=== PATIENT | female | born 1985 | race Caucasian/White ===

== ENCOUNTER 2016-09-09 17:15 | Emergency (ER) | payer MEDICAID, OTHER ==
[~2016-09-09] VITALS: Ht 157.5 cm; Wt 71.0 kg
[2016-09-09 17:19] VITALS: Ht 157.5 cm; Wt 71.0 kg
[2016-09-09] MEDS ORDERED: OLANZAPINE (ODT) 5 MG TAB ODT ONE (18:00)
[2016-09-09] MEDS ORDERED: ONDANSETRON (ODT) 4 MG TAB ODT STA (18:11)
[2016-09-09 18:16] LABS: BASOPHIL # 0.1 10^3/ul (0.0-0.1); BASOPHILS % 0.5 % (0.0-2.0); EOSINOPHILS # 0.2 10^3/ul (0.0-0.5); EOSINOPHILS % 1.4 % (0.0-7.0); HEMATOCRIT 38.5 % (37.0-47.0); HEMOGLOBIN 12.8 g/dl (12.0-16.0); LYMPHOCYTES # 4.1 10^3/ul (0.8-2.9); LYMPHOCYTES % 31.3 % (15.0-51.0); MEAN CORPUSCULAR HEMOGLOBIN 32.2 pg (29.0-33.0); MEAN CORPUSCULAR HGB CONC 33.2 g/dl (32.0-37.0); MEAN CORPUSCULAR VOLUME 96.7 fl (82.0-101.0); MEAN PLATELET VOLUME 10.7 fl (7.4-10.4); MONOCYTE # 0.8 10^3/ul (0.3-0.9); MONOCYTES % 5.8 % (0.0-11.0); NEUTROPHIL # 7.9 10^3/ul (1.6-7.5); NEUTROPHILS % 60.5 % (39.0-77.0); PLATELET COUNT 299 10^3/UL (140-415); RED BLOOD COUNT 3.98 10^6/ul (4.20-5.40); RED CELL DISTRIBUTION WIDTH 12.2 % (11.5-14.5); WHITE BLOOD COUNT 13.1 10^3/ul (4.8-10.8)
[2016-09-09 18:23] LABS: ADD UMIC NO; UR ASCORBIC ACID NEGATIVE (NEGATIVE); UR BILIRUBIN (Dip) NEGATIVE (NEGATIVE); UR BLOOD (Dip) NEGATIVE (NEGATIVE); UR CLARITY CLEAR (CLEAR); UR COLOR STRAW (YELLOW); UR GLUCOSE (Dip) NEGATIVE (NEGATIVE); UR KETONES (Dip) 1+ mg/dL (NEGATIVE); UR LEUKOCYTE ESTERASE (Dip) NEGATIVE Leu/ul (NEGATIVE); UR NITRITE (Dip) NEGATIVE (NEGATIVE); UR SPECIFIC GRAVITY (Dip) 1.001 (1.003-1.030); UR TOTAL PROTEIN (Dip) NEGATIVE (NEGATIVE); UR UROBILINOGEN (Dip) NEGATIVE (NEGATIVE)
[2016-09-09] MEDS ORDERED: HYDROCODONE/APAP (10/325) TAB PO ONE (18:30)
[2016-09-09 18:46] LABS: ALANINE AMINOTRANSFERASE 32 IU/L (13-69); ALBUMIN 5.5 g/dl (3.3-4.9); ALBUMIN/GLOBULIN RATIO 1.61; ALKALINE PHOSPHATASE 64 IU/L (42-121); ANION GAP 18 (8-16); ASPARTATE AMINO TRANSFERASE 25 IU/L (15-46); BILIRUBIN,INDIRECT 0.8 mg/dl (0-1.1); BILIRUBIN,TOTAL 0.8 mg/dl (0.2-1.3); BLOOD UREA NITROGEN 8 mg/dl (7-20); CALCIUM 10.1 mg/dl (8.4-10.2); CARBON DIOXIDE 23 mmol/L (21-31); CHLORIDE 103 mmol/L (97-110); CREATININE 0.79 mg/dl (0.44-1.00); GLUCOSE 81 mg/dl (70-220); POTASSIUM 3.8 mmol/L (3.5-5.1); SODIUM 140 mmol/L (135-144); TOTAL PROTEIN 8.9 g/dl (6.1-8.1)
[2016-09-09 18:47] LABS: ACETAMINOPHEN < 10.0 ug/ml (10.0-30.0); ETHANOL < 10.0 mg/dl; SALICYLATE < 1.0 mg/dl (5.0-30.0)
[2016-09-09 18:53] LABS: CANNABINOIDS Negative (NEGATIVE)
[2016-09-09 18:54] LABS: BARBITURATES Negative (NEGATIVE); BENZODIAZEPINES Negative (NEGATIVE); COCAINE Negative (NEGATIVE); OPIATES Negative (NEGATIVE)
--- NOTE | 2016-09-09 19:08 | RADRPT ---
PROCEDURE: CT abdomen and pelvis without contrast. CLINICAL INDICATION: Lower abdominal pain TECHNIQUE: CT scan of the abdomen and pelvis without contrast was performed on a multislice CT [facility] utilizing axial imaging from the lung bases through the pubis symphysis. The patient was scann ed without intravenous contrast. Sagittal and coronal reformatted images were made. The CTDIvol is 9.68 mGy and the DLP is 471.66 mGycm. One of the following 3 dose reduction techniques were used during this CT examination: automated exp osure control; adjustment of the mA and /or kV according to patient size; or use of iterative recons tructon technique. COMPARISON: None. FINDINGS: The lung bases are clear. The heart size is normal. No pericardial or pleural effusion is present. The liver, gallbladder, pancreas, spleen, and bilateral adrenal glands are normal. No evidence for intrahepatic or extrahepatic biliary ductal dilatation is present. The visualized kidneys demonstra te a nonobstructive 3 mm right mid to inferior pole renal calculus. No evidence for hydroureteronep hrosis or left nephroureterolithiasis is present. The visualized bowel is nonobstructive. No evidence for diverticulosis, diverticulitis, or appendic itis is present. The appendix is normal. The visualized urinary bladder, uterus and bilateral adnexa are normal. No evidence for masses or p athologic lymphadenopathy is present. The aorta is normal without aneurysmal dilatation. No evidence for retroperitoneal lymphadenopathy is noted. No evidence for abdominal ascites or pneumoperitoneum is present. A small amount of pelvic ascites is noted within the cul-de-sac. The imaged osseous structures are remarkable for transitional anatomy. IMPRESSION: 1. Nonobstructive right mid to inferior pole 3 mm renal calculus. 2. Small amount of pelvic ascites 3. No evidence for pneumoperitoneum, bowel obstruction, diverticulitis or appendicitis. RPTAT: [facility] D [facility] .Desirae Strickland MD, Date Time Electronically viewed and signed by .Desirae Strickland MD, MD on 09/09/2016 19:08 .C/
[2016-09-09] MEDS ORDERED: PHEN-538 PO (20:02)
[2016-09-09] MEDS ORDERED: IBUP-1542 PO (20:02)
[2016-09-09] MEDS ORDERED: ONDA4TAB14 PO (20:02)
[2016-09-09 20:21] VITALS: BP 118/71; PULSE 82; RESP 20; TEMP 98
[2016-09-09] MEDS ORDERED: HYDR-902 PO (20:24)
--- NOTE | 2016-09-09 20:33 | ERD ---
ER Documentation Chief Complaint Date/Time DATE: 09/09/16 TIME: 20:30 Chief Complaint Complains of abdominal pain x months HPI Patient is a 31-year-old female with no medical problems who presents with abdominal pain. The patient says that she has had abdominal pain for the past 10 years. She felt like she has been constipated but she has had 3 bowel movements today. She feels like she was not getting any help. She tried Advil without any help. She thought that she may have had kidney stones. Upon review of old medical records this is the patient's first visit to the emergency department. Review of the emergency department information exchange system shows no visits to other emergency departments either. She does not currently have a primary doctor. ROS All systems reviewed and are negative except as per history of present illness. Medications Home Meds Active Scripts Hydrocodone/Acetaminophen ([place] 10-325 Tablet) 1 Each Tablet, 1 TAB PO Q6H Y for PAIN, #7 TAB Prov:PERCY COHN MD 09/09/16 Ondansetron (Ondansetron Odt) 4 Mg Tab.rapdis, 4 MG PO Q6H Y for NAUSEA AND/OR VOMITING, #10 TAB Prov:PERCY COHN MD 09/09/16 Phenazopyridine Hcl* (Pyridium*) 200 Mg Tab, 200 MG PO TID Y for URINARY PAIN, # 6 TAB Prov:PERCY COHN MD 09/09/16 Ibuprofen* (Motrin*) 600 Mg Tab, 600 MG PO Q8, #30 TAB Prov:PERCY COHN MD 09/09/16 Allergies Allergies: Coded Allergies: erythromycin base (Verified Allergy, Intermediate, Rash, 09/09/16) sulfamethoxazole (Verified Allergy, Intermediate, Rash, 09/09/16) trimethoprim (Verified Allergy, Intermediate, Rash, 09/09/16) PMhx/Soc Medical and Surgical Hx: pt denies Medical Hx, pt denies Surgical Hx Hx Alcohol Use: No Hx Substance Use: No Hx Tobacco Use: Yes Smoking Status: Current every day smoker FmHx Family History: diabetes Physical Exam Vitals Vital Signs Date Time Temp Pulse Resp B/P Pulse Ox O2 Delivery O2 Flow Rate FiO2 09/09/16 20:21 98.0 82 20 118/71 98 Room Air 09/09/16 17:19 98.3 83 20 121/62 97 Physical Exam Const: Moderate distress secondary to pain Head: Atraumatic Eyes: Normal Conjunctiva ENT: Normal External Ears, Nose and Mouth. Neck: Full range of motion..~ No meningismus. Resp: Clear to auscultation bilaterally Cardio: Regular rate and rhythm, no murmurs Abd: Soft, diffuse tenderness to palpation without rebound or guarding Skin: No petechiae or rashes Back: No midline or flank tenderness Ext: No cyanosis, or edema Neur: Awake and alert Psych: Normal Mood and Affect Result Diagram: 09/09/16 1755 09/09/161754 Results 24 hrs Laboratory Tests Test 09/09/16 17:51 09/09/16 17:55 09/09/16 18:10 Lipase 157U/L White Blood Count 13.110^3/ul Red Blood Count 3.9810^6/ul Hemoglobin 12.8g/dl Hematocrit 38.5% Mean Corpuscular Volume 96.7fl Mean Corpuscular Hemoglobin 32.2pg Mean Corpuscular Hemoglobin Concent 33.2g/dl Red Cell Distribution Width 12.2% Platelet Count 56422^3/UL Mean Platelet Volume 10.7fl Neutrophils % 60.5% Lymphocytes % 31.3% Monocytes % 5.8% Eosinophils % 1.4% Basophils % 0.5% Nucleated Red Blood Cells % 0.0/100WBC Neutrophils # 7.910^3/ul Lymphocytes # 4.110^3/ul Monocytes # 0.810^3/ul Eosinophils # 0.210^3/ul Basophils # 0.110^3/ul Nucleated Red Blood Cells # 0.010^3/ul Sodium Level 140mmol/L Potassium Level 3.8mmol/L Chloride Level 103mmol/L Carbon Dioxide Level 23mmol/L Anion Gap 18 Blood Urea Nitrogen 8mg/dl Creatinine 0.79mg/dl Glucose Level 81mg/dl Calcium Level 10.1mg/dl Total Bilirubin 0.8mg/dl Direct Bilirubin 0.00mg/dl Indirect Bilirubin 0.8mg/dl Aspartate Amino Transf (AST/SGOT) 25IU/L Alanine Aminotransferase (ALT/SGPT) 32IU/L Alkaline Phosphatase 64IU/L Total Protein 8.9g/dl Albumin 5.5g/dl Globulin 3.40g/dl Albumin/Globulin Ratio 1.61 Salicylates Level < 1.0mg/dl Acetaminophen Level < 10.0ug/ml Ethyl Alcohol Level < 10.0mg/dl Urine Color STRAW Urine Clarity CLEAR Urine pH 7.0 Urine Specific [place] 1.001 Urine Ketones 1+mg/dL Urine Nitrite NEGATIVEmg/dL Urine Bilirubin NEGATIVEmg/dL Urine Urobilinogen NEGATIVEmg/dL Urine Leukocyte Esterase NEGATIVELeu/ul Urine Hemoglobin NEGATIVEmg/dL Urine Glucose NEGATIVEmg/dL Urine Total Protein NEGATIVEmg/dl Urine Opiates Screen Negative Urine Barbiturates Negative Urine Amphetamines Screen Negative Urine Benzodiazepines Screen Negative Urine Cocaine Screen Negative Urine Cannabinoids Negative Current Medications Medications (Trade) Dose Ordered Sig/Yohan Route PRN Reason Start Time Stop Time Status Last Admin Dose Admin Olanzapine (Zyprexa Zydis) 5 mg ONCE ONCE ODT 09/09/16 18:00 09/09/16 18:12 DC Acetaminophen/ Hydrocodone Bitart ([place] (10/325)) 1 tab ONCE ONCE PO 09/09/16 18:30 09/09/16 18:31 DC 09/09/16 18:24 Ondansetron HCl (Zofran Odt) 4 mg ONCE STAT ODT 09/09/16 18:11 09/09/16 18:12 DC 09/09/16 18:24 Procedures/MDM CT scan of the abdomen pelvis shows no acute surgical process per radiology. Smoking Cessation Therapy: Pt. was lectured for greater than 3 minutes on the health risks of continued smoking and the benefits of cessation. Patient is a 31-year-old female who presents with abdominal pain. She had a full workup including laboratory studies, CT scan, and tests which were all negative. At this point I doubt , ectopic , cholecystitis, pancreatitis, appendicitis, or bowel obstruction. I believe outpatient management is appropriate. The patient went to follow-up with the local clinics within 24-48 hours and can return if symptoms worsen. She will be given prescriptions for ibuprofen, [place], and Zofran. She was given copies of her laboratory studies and CT scan results prior to discharge. Departure Diagnosis: Primary Impression: Abdominal pain Abdominal location: generalized Qualified Code: R10.84 - Generalized abdominal pain Condition: Fair Patient Instructions: Abdominal Pain Referrals: COMMUNITY CLINICS YOU HAVE RECEIVED A MEDICAL SCREENING EXAM AND THE RESULTS INDICATE THAT YOU DO NOT HAVE A CONDITION THAT REQUIRES URGENT TREATMENT IN THE EMERGENCY DEPARTMENT. FURTHER EVALUATION AND TREATMENT OF YOUR CONDITION CAN WAIT UNTIL YOU ARE SEEN IN YOUR DOCTORS OFFICE WITHIN THE NEXT 1-2 DAYS. IT IS YOUR RESPONSIBILITY TO MAKE AN APPOINTMENT FOR FOLOW-UP CARE. IF YOU HAVE A PRIMARY DOCTOR --you should call your primary doctor and schedule an appointment IF YOU DO NOT HAVE A PRIMARY DOCTOR YOU CAN CALL OUR PHYSICIAN REFERRAL HOTLINE AT IF YOU CAN NOT AFFORD TO SEE A PHYSICIAN YOU CAN CHOSE FROM THE FOLLOWING [facility] [address] [facility] [address] [address] [facility] [facility] [address] [facility] [address] [facility]. [facility] [address] [facility]. [facility]. [address] Additional Instructions: Call your primary care doctor TOMORROW for an appointment during the next 1-2 days.See the doctor sooner or return here if your condition worsens before your appointment time. PERCY COHN MD Sep 09, 2016 20:33
== END 2016-09-09 20:27 | disposition home or self-care (01) ==
LOC: FTE 17:15 → E/R 20:27
DX: R10.84 Generalized abdominal pain (principal); R40.2142 Coma scale, eyes open, spontaneous, at arrival to emergency department; R40.2252 Coma scale, best verbal response, oriented, at arrival to emergency department; R40.2362 Coma scale, best motor response, obeys commands, at arrival to emergency department; F17.210 Nicotine dependence, cigarettes, uncomplicated
CPT/HCPCS: 74176; 80053; 80306; 80307; 81003; 83690; 85025; Z7610; 36415

== ENCOUNTER 2016-10-19 17:21 | Emergency (ER) | payer MEDICAID, OTHER ==
[~2016-10-19] VITALS: Ht 170.2 cm; Wt 71.5 kg
[~2016-10-19 17:21] MED LIST: HYDR-902 PO; IBUP-1542 PO; ONDA4TAB14 PO; PHEN-538 PO
[2016-10-19 17:31] VITALS: Ht 170.2 cm; Wt 71.5 kg
[2016-10-19] MEDS ORDERED: KETOROLAC 60 MG INJ IM STA (19:05)
--- NOTE | 2016-10-19 19:16 | ERD ---
ER Documentation Chief Complaint Date/Time DATE: 10/19/16 TIME: 19:11 Chief Complaint pain with urination x 10 months HPI 31-year-old female complaining of flank pain 10 months. Patient states she has a history of kidney stones but pain has been worsening. Patient was sent to [facility] imaging [place] for KUB earlier today and saw multiple stones on x -ray. Patient states she came to the ER today to have stones removed. Patient denies fever. States that she has fatigue and vomiting. Denies back pain. Denies chest pain or shortness of breath. Feels that she is retaining water. She currently takes Pyridium. Denies any dysuria. Denies hematuria. ROS All systems reviewed and are negative except as per history of present illness. Medications Home Meds Active Scripts Tamsulosin Hcl* (Flomax*) 0.4 Mg Cap.er.24h, 0.4 MG PO QPM, #30 CAP Prov:SENDY GRIFFIN NP 10/19/16 Hydrocodone/Acetaminophen ([place] 5-325 Tablet) 1 Each Tablet, 1 TAB PO Q6H Y for SEVERE PAIN LEVEL 7-10, #20 TAB Prov:SENDY GRIFFIN NP 10/19/16 Ibuprofen* (Motrin*) 600 Mg Tab, 600 MG PO Q6H Y for PAIN AND OR ELEVATED TEMP, #30 TAB Prov:SENDY GRIFFIN NP 10/19/16 Phenazopyridine Hcl* (Pyridium*) 200 Mg Tab, 200 MG PO TID Y for URINARY PAIN, # 6 TAB Prov:SENDY GRIFFIN NP 10/19/16 Ciprofloxacin Hcl* (Ciprofloxacin Hcl*) 500 Mg Tablet, 500 MG PO BID for 10 Days , TAB Prov:SENDY GRIFFIN NP 10/19/16 Hydrocodone/Acetaminophen ([place] 10-325 Tablet) 1 Each Tablet, 1 TAB PO Q6H Y for PAIN, #7 TAB Prov:PERCY COHN MD 09/09/16 Ondansetron (Ondansetron Odt) 4 Mg Tab.rapdis, 4 MG PO Q6H Y for NAUSEA AND/OR VOMITING, #10 TAB Prov:PERCY COHN MD 09/09/16 Phenazopyridine Hcl* (Pyridium*) 200 Mg Tab, 200 MG PO TID Y for URINARY PAIN, # 6 TAB Prov:PERCY COHN MD 09/09/16 Ibuprofen* (Motrin*) 600 Mg Tab, 600 MG PO Q8, #30 TAB Prov:PERCY COHN MD 09/09/16 Allergies Allergies: Coded Allergies: erythromycin base (Verified Allergy, Intermediate, Rash, 09/09/16) sulfamethoxazole (Verified Allergy, Intermediate, Rash, 09/09/16) trimethoprim (Verified Allergy, Intermediate, Rash, 09/09/16) PMhx/Soc History of Surgery: Yes (REMOVAL OF RIGHT BREAST CYST ) Anesthesia Reaction: No Hx Neurological Disorder: No Hx Respiratory Disorders: No Hx Cardiac Disorders: No Hx Psychiatric Problems: No Hx Miscellaneous Medical Probl: Yes (KIDNEY STONES ) Hx Alcohol Use: No Hx Substance Use: No Hx Tobacco Use: Yes Smoking Status: Never smoker Physical Exam Vitals Vital Signs Date Time Temp Pulse Resp B/P Pulse Ox O2 Delivery O2 Flow Rate FiO2 10/19/16 17:31 100.1 100 16 141/73 96 Physical Exam Resp: Clear to auscultation bilaterally Cardio: Regular rate and rhythm, no murmurs Abd: Soft, non tender, non distended. Normal bowel sounds Skin: No petechiae or rashes Back: No midline or flank tenderness Result Diagram: 10/19/16191910/19/161919 Results 24 hrs Laboratory Tests Test 10/19/16 19:14 10/19/16 19:20 Urine Color PIPE Urine Clarity CLEAR Urine pH 7.0 Urine Specific [place] 1.002 Urine Ketones TRACEmg/dL Urine Nitrite POSITIVEmg/dL Urine Bilirubin NEGATIVEmg/dL Urine Urobilinogen NEGATIVEmg/dL Urine Leukocyte Esterase NEGATIVELeu/ul Urine Microscopic RBC 0/HPF Urine Microscopic WBC 0/HPF Urine Hemoglobin NEGATIVEmg/dL Urine Glucose NEGATIVEmg/dL Urine Total Protein NEGATIVEmg/dl White Blood Count 12.110^3/ul Red Blood Count 3.5310^6/ul Hemoglobin 11.6g/dl Hematocrit 33.5% Mean Corpuscular Volume 94.9fl Mean Corpuscular Hemoglobin 32.9pg Mean Corpuscular Hemoglobin Concent 34.6g/dl Red Cell Distribution Width 12.2% Platelet Count 65495^3/UL Mean Platelet Volume 10.6fl Neutrophils % 59.0% Lymphocytes % 32.6% Monocytes % 6.0% Eosinophils % 1.6% Basophils % 0.4% Nucleated Red Blood Cells % 0.0/100WBC Neutrophils # 7.210^3/ul Lymphocytes # 4.010^3/ul Monocytes # 0.710^3/ul Eosinophils # 0.210^3/ul Basophils # 0.110^3/ul Nucleated Red Blood Cells # 0.010^3/ul Sodium Level 140mmol/L Potassium Level 3.9mmol/L Chloride Level 101mmol/L Carbon Dioxide Level 23mmol/L Anion Gap 20 Blood Urea Nitrogen 9mg/dl Creatinine 0.94mg/dl Glucose Level 88mg/dl Calcium Level 9.3mg/dl Total Bilirubin 0.6mg/dl Direct Bilirubin 0.00mg/dl Indirect Bilirubin 0.6mg/dl Aspartate Amino Transf (AST/SGOT) 19IU/L Alanine Aminotransferase (ALT/SGPT) 35IU/L Alkaline Phosphatase 64IU/L Total Protein 8.0g/dl Albumin 4.9g/dl Globulin 3.10g/dl Albumin/Globulin Ratio 1.58 Lipase 123U/L Current Medications Medications (Trade) Dose Ordered Sig/Yohan Route PRN Reason Start Time Stop Time Status Last Admin Dose Admin Ketorolac Tromethamine (Toradol) 60 mg ONCE STAT IM 10/19/16 19:05 10/19/16 19:09 DC 10/19/16 20:55 Ceftriaxone Sodium (Rocephin) 1 gm ONCE ONCE IM 10/19/16 20:00 10/19/16 20:01 DC 10/19/16 20:56 Lidocaine (Xylocaine 1% (Mdv) 20 ml) 20 ml ONCE ONCE SC 10/19/16 20:00 10/19/16 20:01 DC Procedures/MDM ER Course: Patient was given in IM Toradol in the ED. Bloodwork was drawn in the ED DIAGNOSTIC IMAGING REPORT Patient: ALETHEA JONES : 1985 Age: 31 Sex: F MR #: [id number] DOS: 10/19/16 1905 Ordering MD: ASHVIN LAMBERT PA-C Location: [facility] Room/Bed: PROCEDURE: CT Abdomen and Pelvis without contrast. CLINICAL INDICATION: Pain. TECHNIQUE: CT scan of the abdomen and pelvis was performed on a multidetector slice CT scanner. No intravenous contrast material was utilized. Sagittal and coronal reformatted images were obtained from the axial source images. Images were reviewed on a high-resolution PACS workstation. Exam CTDlvol = 11 mGy and DLP = 565 Gy-cm. One of the following 3 dose reduction techniques were used: Automated exposure control; adjustment of the mA and/or kV according to patient size; or use of iterative reconstruction technique. COMPARISON: 09/09/2016. FINDINGS: There is no obstruction or ileus. The appendix is well visualized and normal in size. There is no evidence for diverticulitis. There is a small amount of pelvic free fluid. free fluid. The liver is enlarged 818.2 cm. No intrahepatic lesions are identified. The gallbladder is normal in appearance. There is no definite biliary ductal dilation. Pancreas is normal in appearance. The spleen is unremarkable. There are no adrenal masses. The aorta is normal caliber. There is a punctate 1 mm nonobstructing calcification lower pole of the right kidney is slightly different position. Is there study. Kidneys are otherwise normal in appearance without hydronephrosis, mass or obstructing calculus. There is no perinephric collection. Ureters are of normal caliber and without evidence for an obstructing calculus The urinary bladder is normal in appearance. The uterus and ovaries are grossly unremarkable. Limited evaluation of the lung bases is unremarkable. The bones are unremarkable. IMPRESSION: 1. No obstructive uropathy. Small nonobstructing calculus in the lower pole right kidney is slightly different position is compared to prior study. No other calculus identified. 2. No appendicitis or diverticulitis. 3. Small amount of pelvic free fluid. 4. No obstruction or ileus. 5. Grossly unremarkable uterus and ovaries. MDM: 31 yr old female complaining of flank pain. I have low suspicion for pyelonephritis. Patient's vitals are stable and patient does not have flank pain on exam. I have low suspicion for acute abdomen, patient's exam is within normal limits and patient's CT is within normal limits. I have low suspicion for pelvic emergency. Exam is non concerning. Patient does have kidney stones however she has normal kidney function so there is no obstruction seen and patient has normal kidney function. Patient was discharged with antibiotics and told to follow up with primary doctor in 1-2 days. All other questions answered at the time of discharge. Departure Diagnosis: Primary Impression: UTI (urinary tract infection) Additional Impression: Kidney stone Condition: Stable VERONICA LAMBERT PA-C Oct 19, 2016 19:16
[2016-10-19 19:41] LABS: BASOPHIL # 0.1 10^3/ul (0.0-0.1); BASOPHILS % 0.4 % (0.0-2.0); EOSINOPHILS # 0.2 10^3/ul (0.0-0.5); EOSINOPHILS % 1.6 % (0.0-7.0); HEMATOCRIT 33.5 % (37.0-47.0); HEMOGLOBIN 11.6 g/dl (12.0-16.0); LYMPHOCYTES % 32.6 % (15.0-51.0); MEAN CORPUSCULAR HEMOGLOBIN 32.9 pg (29.0-33.0); MEAN CORPUSCULAR HGB CONC 34.6 g/dl (32.0-37.0); MEAN CORPUSCULAR VOLUME 94.9 fl (82.0-101.0); MEAN PLATELET VOLUME 10.6 fl (7.4-10.4); MONOCYTE # 0.7 10^3/ul (0.3-0.9); NEUTROPHIL # 7.2 10^3/ul (1.6-7.5); PLATELET COUNT 294 10^3/UL (140-415); RED BLOOD COUNT 3.53 10^6/ul (4.20-5.40); RED CELL DISTRIBUTION WIDTH 12.2 % (11.5-14.5); WHITE BLOOD COUNT 12.1 10^3/ul (4.8-10.8)
[2016-10-19 19:50] LABS: ADD UMIC YES; UR ASCORBIC ACID NEGATIVE (NEGATIVE); UR BILIRUBIN (Dip) NEGATIVE (NEGATIVE); UR BLOOD (Dip) NEGATIVE (NEGATIVE); UR CLARITY CLEAR (CLEAR); UR COLOR AMBER (YELLOW); UR GLUCOSE (Dip) NEGATIVE (NEGATIVE); UR KETONES (Dip) TRACE mg/dL (NEGATIVE); UR LEUKOCYTE ESTERASE (Dip) NEGATIVE Leu/ul (NEGATIVE); UR NITRITE (Dip) POSITIVE (NEGATIVE); UR RBC 0 /HPF (0-5); UR SPECIFIC GRAVITY (Dip) 1.002 (1.003-1.030); UR TOTAL PROTEIN (Dip) NEGATIVE (NEGATIVE); UR UROBILINOGEN (Dip) NEGATIVE (NEGATIVE)
[2016-10-19] MEDS ORDERED: LIDOCAINE 1% (MDV) 20 ML INJ SC ONE (20:00)
[2016-10-19] MEDS ORDERED: CEFTRIAXONE 1 GM INJ IM ONE (20:00)
[2016-10-19 20:03] LABS: ALBUMIN 4.9 g/dl (3.3-4.9); ALBUMIN/GLOBULIN RATIO 1.58; BILIRUBIN,INDIRECT 0.6 mg/dl (0-1.1); BILIRUBIN,TOTAL 0.6 mg/dl (0.2-1.3); CALCIUM 9.3 mg/dl (8.4-10.2); CREATININE 0.94 mg/dl (0.44-1.00); POTASSIUM 3.9 mmol/L (3.5-5.1)
--- NOTE | 2016-10-19 20:41 | RADRPT ---
PROCEDURE: CT Abdomen and Pelvis without contrast. CLINICAL INDICATION: Pain. TECHNIQUE: CT scan of the abdomen and pelvis was performed on a multidetector slice CT scanner. No intravenous contrast material was utilized. Sagittal and coronal reformatted images were obtained fr om the axial source images. Images were reviewed on a high-resolution PACS workstation. Exam CTDlvol = 11 mGy and DLP = 565 Gy-cm. One of the following 3 dose reduction techniques were used: Automated exposure control; adjustment of the mA and/or kV according to patient size; or use of iterative rec onstruction technique. COMPARISON: 09/09/2016. FINDINGS: There is no obstruction or ileus. The appendix is well visualized and normal in size. There is no evidence for diverticulitis. There is a small amount of pelvic free fluid. free fluid. The liver is enlarged 818.2 cm. No intrahepatic lesions are identified. The gallbladder is normal in appearance. There is no definite biliary ductal dilation. Pancreas is normal in appearance. The spl een is unremarkable. There are no adrenal masses. The aorta is normal caliber. There is a punctate 1 mm nonobstructing calcification lower pole of the right kidney is slightly dif ferent position. Is there study. Kidneys are otherwise normal in appearance without hydronephrosis, mass or obstructing calculus. There is no perinephric collection. Ureters are of normal caliber and without evidence for an obstructing calculus The urinary bladder is normal in appearance. The uterus and ovaries are grossly unremarkable. Limited evaluation of the lung bases is unremarkable. The bones are unremarkable. IMPRESSION: 1. No obstructive uropathy. Small nonobstructing calculus in the lower pole right kidney is slight ly different position is compared to prior study. No other calculus identified. 2. No appendicitis or diverticulitis. 3. Small amount of pelvic free fluid. 4. No obstruction or ileus. 5. Grossly unremarkable uterus and ovaries. RPTAT: [facility] .Enmanuel Espinoza MD, Date Time Electronically viewed and signed by .Enmanuel Espinoza MD, on 10/19/2016 20:41 .K/
--- NOTE | 2016-10-19 21:35 | QN ---
Documentation Comment Patient was signed to me by Sofya HARMON, no obstructed stone noted in the CT scan. Patient has some nitrite in the urine, possible consistent with urinary tract infection. Patient will be treated with ciprofloxacin, pyridium [place] and ibuprofen for pain. Patient was advised to follow-up with primary care doctor in 2-3 days, see urology specialist, there is some stool noted in the kidney but it is not obstructive. Patient was advised to return to emergency department for worsening symptoms. PROCEDURE: CT Abdomen and Pelvis without contrast. CLINICAL INDICATION: Pain. TECHNIQUE: CT scan of the abdomen and pelvis was performed on a multidetector slice CT scanner. No intravenous contrast material was utilized. Sagittal and coronal reformatted images were obtained from the axial source images. Images were reviewed on a high-resolution PACS workstation. Exam CTDlvol = 11 mGy and DLP = 565 Gy-cm. One of the following 3 dose reduction techniques were used: Automated exposure control; adjustment of the mA and/or kV according to patient size; or use of iterative reconstruction technique. COMPARISON: 09/09/2016. FINDINGS: There is no obstruction or ileus. The appendix is well visualized and normal in size. There is no evidence for diverticulitis. There is a small amount of pelvic free fluid. free fluid. The liver is enlarged 818.2 cm. No intrahepatic lesions are identified. The gallbladder is normal in appearance. There is no definite biliary ductal dilation. Pancreas is normal in appearance. The spleen is unremarkable. There are no adrenal masses. The aorta is normal caliber. There is a punctate 1 mm nonobstructing calcification lower pole of the right kidney is slightly different position. Is there study. Kidneys are otherwise normal in appearance without hydronephrosis, mass or obstructing calculus. There is no perinephric collection. Ureters are of normal caliber and without evidence for an obstructing calculus The urinary bladder is normal in appearance. The uterus and ovaries are grossly unremarkable. Limited evaluation of the lung bases is unremarkable. The bones are unremarkable. IMPRESSION: 1. No obstructive uropathy. Small nonobstructing calculus in the lower pole right kidney is slightly different position is compared to prior study. No other calculus identified. 2. No appendicitis or diverticulitis. 3. Small amount of pelvic free fluid. 4. No obstruction or ileus. 5. Grossly unremarkable uterus and ovaries. RPTAT: [facility] .Enmanuel Espinoza MD, Date Time Electronically viewed and signed by .Enmanuel Espinoza MD, on 10/19/2016 20:41 .K/ CC: VERONICA LAMBERT PA-C Disposition: Home. Stable. SENDY GRIFFIN NP Oct 19, 2016 21:35
[2016-10-19] MEDS ORDERED: CIPR500T4 PO (21:36)
[2016-10-19] MEDS ORDERED: IBUP-1542 PO (21:36)
[2016-10-19] MEDS ORDERED: HYDR-906 PO (21:36)
[2016-10-19] MEDS ORDERED: PHEN-538 PO (21:36)
[2016-10-19] MEDS ORDERED: TAMS-14 PO (21:45)
== END 2016-10-19 21:51 | disposition home or self-care (01) ==
LOC: FTE 17:21
DX: N39.0 Urinary tract infection, site not specified (principal); N20.0 Calculus of kidney
CPT/HCPCS: 36415; 74176; 80053; 81001; 83690; 85025; 96372; J0696; J1885; Z7502; Z7610

== ENCOUNTER 2016-11-21 10:15 | Emergency (ER) | payer OTHER ==
[~2016-11-21] VITALS: Ht 157.5 cm; Wt 70.0 kg
[~2016-11-21 10:15] MED LIST changes: +CIPR500T4 PO; +HYDR-906 PO; +TAMS-14 PO
[2016-11-21 10:17] VITALS: Ht 157.5 cm; Wt 70.0 kg
[2016-11-21] MEDS ORDERED: HYDR-906 PO (10:38)
[2016-11-21] MEDS ORDERED: IBUP-1542 PO (10:39)
--- NOTE | 2016-11-21 10:46 | ERD ---
ER Documentation Chief Complaint Date/Time DATE: 11/21/16 TIME: 10:39 Chief Complaint pelvic pain? hx kidney stone. has pain for while, no n/v HPI Patient is a 31-year-old female with past medical history of nephrolithiasis presents emergency department for ongoing R sided flank pain and pelvic pain 10 months. Patient brings in numerous imaging studies which show the patient has multiple stones with the largest are noted to be 3 mm back in August of this year. Patient states she recently changed insurances and has been unable to obtain a follow-up with a solidworks designer. Patient denies any fevers, chills, nausea, vomiting, changes in urinary output or LOC. Patient denies any dysuria , hematuria, frequency, vaginal bleeding. Patient reports taking ibuprofen for his symptoms however she states it is not working. Patient requesting refill of "stronger medication." Patient states she had to go to a hospital in [place] due to severe pain and was given Oxycodone. ROS All systems reviewed and are negative except as per history of present illness. Medications Home Meds Active Scripts Ibuprofen* (Motrin*) 600 Mg Tab, 600 MG PO Q6, #30 TAB Prov:MANUEL CARBALLO PA-C 11/21/16 Hydrocodone/Acetaminophen ([place] 5-325 Tablet) 1 Each Tablet, 1 TAB PO Q6H Y for PAIN, #5 TAB Prov:MANUEL CARBALLO PA-C 11/21/16 Tamsulosin Hcl* (Flomax*) 0.4 Mg Cap.er.24h, 0.4 MG PO QPM, #30 CAP Prov:SENDY GRIFFIN NP 10/19/16 Hydrocodone/Acetaminophen ([place] 5-325 Tablet) 1 Each Tablet, 1 TAB PO Q6H Y for SEVERE PAIN LEVEL 7-10, #20 TAB Prov:SENDY GRIFFIN NP 10/19/16 Ibuprofen* (Motrin*) 600 Mg Tab, 600 MG PO Q6H Y for PAIN AND OR ELEVATED TEMP, #30 TAB Prov:SENDY GRIFFIN NP 10/19/16 Phenazopyridine Hcl* (Pyridium*) 200 Mg Tab, 200 MG PO TID Y for URINARY PAIN, # 6 TAB Prov:SENDY GRIFFIN NP 10/19/16 Ciprofloxacin Hcl* (Ciprofloxacin Hcl*) 500 Mg Tablet, 500 MG PO BID for 10 Days , TAB Prov:SENDY GRIFFIN NP 10/19/16 Hydrocodone/Acetaminophen ([place] 10-325 Tablet) 1 Each Tablet, 1 TAB PO Q6H Y for PAIN, #7 TAB Prov:PERCY COHN MD 09/09/16 Ondansetron (Ondansetron Odt) 4 Mg Tab.rapdis, 4 MG PO Q6H Y for NAUSEA AND/OR VOMITING, #10 TAB Prov:PERCY COHN MD 09/09/16 Phenazopyridine Hcl* (Pyridium*) 200 Mg Tab, 200 MG PO TID Y for URINARY PAIN, # 6 TAB Prov:PERCY COHN MD 09/09/16 Ibuprofen* (Motrin*) 600 Mg Tab, 600 MG PO Q8, #30 TAB Prov:PERCY COHN MD 09/09/16 Allergies Allergies: Coded Allergies: erythromycin base (Verified Allergy, Intermediate, Rash, 09/09/16) sulfamethoxazole (Verified Allergy, Intermediate, Rash, 09/09/16) trimethoprim (Verified Allergy, Intermediate, Rash, 09/09/16) PMhx/Soc History of Surgery: Yes (REMOVAL OF RIGHT BREAST CYST ) Anesthesia Reaction: No Hx Neurological Disorder: No Hx Respiratory Disorders: No Hx Cardiac Disorders: No Hx Psychiatric Problems: No Hx Miscellaneous Medical Probl: Yes (KIDNEY STONES ) Hx Alcohol Use: No Hx Substance Use: No Hx Tobacco Use: Yes Physical Exam Vitals Vital Signs Date Time Temp Pulse Resp B/P Pulse Ox O2 Delivery O2 Flow Rate FiO2 11/21/16 10:17 98.1 79 18 137/79 99 Physical Exam fmeGENERAL: Well-developed, well-nourished female. Appears in no acute distress. HEAD: Normocephalic, atraumatic. EYES: Pupils are equally reactive bilaterally. EOMs grossly intact. No conjunctival erythema. ENT: Moist mucous membranes. No uvula deviation. No kissing tonsils. NECK: Supple. No meningismus. Normal range of motion of the neck. LUNG: Clear to auscultation bilaterally. No rhonchi, wheezing, rales or coarse breath sounds. HEART: Regular rate and rhythm. No murmurs, rubs or gallops. ABDOMEN: No scars, ecchymosis or rashes noted. Soft, nontender, and nondistended. Positive bowel sounds in all four quadrants. No rebound tenderness , no guarding. (-) McBurney's point tenderness. No CVA tenderness. EXTREMITIES: Equal pulses bilaterally. No peripheral clubbing, cyanosis or edema. No unilateral leg swelling. NEUROLOGIC: Alert and oriented. Moving all four extremities without any difficulty. Normal speech. Steady gait. SKIN: Normal color. Warm and dry. No rashes or lesions. Results 24 hrs Laboratory Tests Test 11/21/16 11:20 Bedside Urine pH (LAB) 7.0 Bedside Urine Protein (LAB) Negative Bedside Urine Glucose (UA) Negative Bedside Urine Ketones (LAB) Negative Bedside Urine Blood 2+ Bedside Urine Nitrite (LAB) Negative Bedside Urine Leukocyte Esterase (L 1+ Procedures/MDM MEDICAL DECISION MAKING: This is a 31-year-old female with a history of nephrolithiasis presents emergency department for ongoing flank pain. Patient states she has been unable to follow-up with the solidworks designer. Patient is a numerous visits the emergency department for her ongoing stones.. Vital signs were reviewed. Patient was afebrile. UA showed 2+ blood, 1+ Leukocyte esterase.Upon discussing these results with the patient, she states that she only started taking the ciprofloxacin prescribed to her at the last visit 3 days ago. Patient states that she has 6 days left. Patient advised to continue medication. Urine was negative. I reviewed previous imaging studies obtained. She had abdomen CT and pelvis patient last had a CT abdomen pelvis and previous imaging studies show 1. Nonobstructive right mid to inferior pole 3 mm renal calculus. 2. Small amount of pelvic ascites 3. No evidence for pneumoperitoneum, bowel obstruction, diverticulitis or appendicitis. Given that patient does have a confirmed history of a 3 mm stone, I do not feel that additional imaging studies are needed at this time. I did CURES the patient given that she was requesting narcotic medication. CURES report shows patient has only received 2 narcotic rxs from this facility. Patient will be given a prescription for 5 tabs of [place] and ibuprofen. I explained to the patient that narcotic medication is a temporary solution for her ongoing symptoms. She will need follow-up with a solidworks designer as soon as possible for further management of her stone including possible lithotripsy procedures. Referral information will be provided. Patient advised that she will not get any more narcotic medication after this visit. Given these findings, the patient's presentation is most consistent with nephrolithiasis and UTI. I have a much lower clinical concern for pyelonephritis , appendicitis, diverticulitis, constipation, , ectopic . PRESCRIPTIONS: Ibuprofe, [place] DISCHARGE: At this time, patient is stable for discharge and outpatient management. I have instructed the patient to follow-up with his/her primary care physician in 1-2 days. If symptoms persist, patient may need to see a specialist for further examinations and testing. I have instructed the patient to promptly return to the ER at any time for any new or worsening symptoms including increased increased pain, fever, nausea, vomiting, urinary changes or weakness. The patient and/or family expressed understanding of and agreement with this plan. All questions were answered. Home care instructions were provided. Departure Diagnosis: Primary Impression: Kidney stone Additional Impression: UTI (urinary tract infection) Urinary tract infection type: acute cystitis Hematuria presence: with hematuria Qualified Code: N30.01 - Acute cystitis with hematuria Condition: Stable Patient Instructions: Understanding Kidney Stones Referrals: VANDANA HORN (PCP) TRISTEN JAEGER MD, VINOD M MD AYUSTE, BRIAN MD BARSOUM,TJ JIMENEZ,CHAVA MALIK,CARLOS ELIZONDO MD, MD Additional Instructions: Continue antibiotics for UTI. Finish full course. Follow up with your Primary care physician for nephrology follow up. Call your primary care doctor TOMORROW for an appointment during the next 1-2 days.See the doctor sooner or return here if your condition worsens before your appointment time. MANUEL CARBALLO PA-C Nov 21, 2016 10:46
[2016-11-21 11:13] LABS: URINE BLOOD (Dip) POC 2+ (NEGATIVE)
== END 2016-11-21 11:40 | disposition home or self-care (01) ==
LOC: FTE 10:15
DX: N20.0 Calculus of kidney (principal); N30.01 Acute cystitis with hematuria
CPT/HCPCS: 81003; Z7502; 99283

== ENCOUNTER 2016-11-29 13:54 | Emergency (ER) | payer OTHER ==
[~2016-11-29] VITALS: Ht 157.5 cm; Wt 78.0 kg
[2016-11-29 13:58] VITALS: Ht 157.5 cm; Wt 78.0 kg
--- NOTE | 2016-11-29 16:02 | ERD ---
ER Documentation Chief Complaint Date/Time DATE: 11/29/16 TIME: 16:01 Chief Complaint pelvic pain HPI This 31-year-old female presents to emergency department with pelvic pain pt crying and upset . Complex medical history patient brings information in with her. Patient has documentation of any perineal pain. Renal calculus with calculus of ureter. Multiple phleboliths within the pelvis. She reports she has been seen by her primary physician. She has a referral for vascular surgery has not seen a pulmonary fellow and currently is looking for a new primary care physician. ROS All systems reviewed and are negative except as per history of present illness. Medications Home Meds Active Scripts Ibuprofen* (Motrin*) 600 Mg Tab, 600 MG PO Q6, #30 TAB Prov:MANUEL CARBALLO PA-C 11/21/16 Hydrocodone/Acetaminophen ([place] 5-325 Tablet) 1 Each Tablet, 1 TAB PO Q6H Y for PAIN, #5 TAB Prov:MANUEL CARBALLO PA-C 11/21/16 Tamsulosin Hcl* (Flomax*) 0.4 Mg Cap.er.24h, 0.4 MG PO QPM, #30 CAP Prov:SENDY GRIFFIN NP 10/19/16 Hydrocodone/Acetaminophen ([place] 5-325 Tablet) 1 Each Tablet, 1 TAB PO Q6H Y for SEVERE PAIN LEVEL 7-10, #20 TAB Prov:SENDY GRIFFIN NP 10/19/16 Ibuprofen* (Motrin*) 600 Mg Tab, 600 MG PO Q6H Y for PAIN AND OR ELEVATED TEMP, #30 TAB Prov:SENDY GRIFFIN NP 10/19/16 Phenazopyridine Hcl* (Pyridium*) 200 Mg Tab, 200 MG PO TID Y for URINARY PAIN, # 6 TAB Prov:SENDY GRIFFIN NP 10/19/16 Ciprofloxacin Hcl* (Ciprofloxacin Hcl*) 500 Mg Tablet, 500 MG PO BID for 10 Days , TAB Prov:SENDY GRIFFIN NP 10/19/16 Hydrocodone/Acetaminophen ([place] 10-325 Tablet) 1 Each Tablet, 1 TAB PO Q6H Y for PAIN, #7 TAB Prov:PERCY COHN MD 09/09/16 Ondansetron (Ondansetron Odt) 4 Mg Tab.rapdis, 4 MG PO Q6H Y for NAUSEA AND/OR VOMITING, #10 TAB Prov:PERCY COHN MD 09/09/16 Phenazopyridine Hcl* (Pyridium*) 200 Mg Tab, 200 MG PO TID Y for URINARY PAIN, # 6 TAB Prov:PERCY COHN MD 09/09/16 Ibuprofen* (Motrin*) 600 Mg Tab, 600 MG PO Q8, #30 TAB Prov:PERCY COHN MD 09/09/16 Allergies Allergies: Coded Allergies: erythromycin base (Verified Allergy, Intermediate, Rash, 09/09/16) sulfamethoxazole (Verified Allergy, Intermediate, Rash, 09/09/16) trimethoprim (Verified Allergy, Intermediate, Rash, 09/09/16) PMhx/Soc History of Surgery: Yes (REMOVAL OF RIGHT BREAST CYST ) Anesthesia Reaction: No Hx Neurological Disorder: No Hx Respiratory Disorders: No Hx Cardiac Disorders: No Hx Psychiatric Problems: No Hx Miscellaneous Medical Probl: Yes (KIDNEY STONES ) Hx Alcohol Use: No Hx Substance Use: No Hx Tobacco Use: Yes Physical Exam Vitals Vital Signs Date Time Temp Pulse Resp B/P Pulse Ox O2 Delivery O2 Flow Rate FiO2 11/29/16 13:58 98.1 68 18 118/66 99 Stable, triage notes reviewed Physical Exam Const: Nourished well-hydrated well-appearing, patient crying, obvious discomfort no acute distress Head: Eyes: ENT: Neck: Resp: Cardio: Abd: Soft, non tender, non distended. No epigastric pain, Stone sign, no McBurney's point tenderness, negative CVA tenderness Skin: No petechiae or rashes Back: No midline or flank tenderness Ext: No cyanosis, or edema Neur: Awake and alert Psych: Normal Mood and Affect Results 24 hrs Laboratory Tests Test 11/29/16 16:51 11/29/16 17:00 Bedside Urine pH (LAB) 7.0 Bedside Urine Protein (LAB) Negative Bedside Urine Glucose (UA) Negative Bedside Urine Ketones (LAB) Negative Bedside Urine Blood Negative Bedside Urine Nitrite (LAB) Negative Bedside Urine Leukocyte Esterase (L Negative Urine Color YELLOW Urine Clarity SLIGHTLY CLOUDY Urine pH 7.0 Urine Specific [place] 1.011 Urine Ketones NEGATIVEmg/dL Urine Nitrite NEGATIVEmg/dL Urine Bilirubin NEGATIVEmg/dL Urine Urobilinogen NEGATIVEmg/dL Urine Leukocyte Esterase NEGATIVELeu/ul Urine Microscopic RBC 0/HPF Urine Microscopic WBC 0/HPF Urine Bacteria FEW/HPF Urine Hemoglobin NEGATIVEmg/dL Urine Glucose NEGATIVEmg/dL Urine Total Protein NEGATIVEmg/dl Current Medications Medications (Trade) Dose Ordered Sig/Yohan Route PRN Reason Start Time Stop Time Status Last Admin Dose Admin Ketorolac Tromethamine (Toradol) 15 mg ONCE STAT IM 11/29/16 16:05 11/29/16 16:06 DC 11/29/16 16:52 Acetaminophen/ Hydrocodone Bitart ([place] (5/325)) 1 tab ONCE ONCE PO 11/29/16 16:30 11/29/16 16:31 DC 11/29/16 16:51 Urinalysis negative for evidence of infection Procedures/MDM PROCEDURE: US Pelvis. CLINICAL INDICATION: Pelvic pain. TECHNIQUE: The pelvis was evaluated with transabdominal sonography in the axial and sagittal planes. COMPARISON: No prior study is available for comparison. FINDINGS: The uterus measures 7.7 x 2.9 x 4.7 cm. There is no uterine enlargement or mass. Endometrial thickness is 8 mm. Small benign Nabothian cysts are present in the cervix. The ovaries are not visualized. There is no other pelvic mass or free fluid. IMPRESSION: 1. Limited study as transvaginal sonography was not performed. 2. Normal uterus and ovaries. 3. Small benign Nabothian cysts in the cervix. Electronically viewed and signed by .Sudheer Salse MD, MD on 11/29/2016 16:52 This 31-year-old female presents to emergency department crying, upset, reports that she is in pain from pelvic phleboliths. Patient was diagnosed from a day done by primary care physician. She also has renal calculi and ureteral calculi. Reports she has referral for vascular surgery. Has not seen a pulmonary fellow at this time. Last evaluated on 11/12 2016 with CAT scan which showed a 1 mm punctuated stone in the right kidney with no other findings. Patient also has history of frequent urinary tract infections. Today's emergency room course will include a pelvic ultrasound, urinalysis, and pain control with Toradol 15 mg intramuscularly and 1 5/325 [place]. Reassessed after 30 minutes with improvement of symptoms. Pelvic ultrasound results as dictated by radiologist. Findings uterus measures 7.7 x 2.9 x 4.7 cm there is no uterine enlargement or mass. Endometrial thickening is 8 mm small benign nabothian cysts are present in the cervix. The ovaries are not visualized. There is no other pelvic mass or free fluids. Plan to discharge patient home with Naprosyn 500 mg 1 tab p.o. twice daily 10 days, [place]/325 count is 7, instructed to follow-up with primary care physician, continue current plan with vascular surgical evaluation for phleboliths. Patient is stable with no new complaints during ER course, clinically there is no current evidence to suggest acute abdomen, uterine mass, or any other emergent condition appearing to require further evaluation or hospitalization. I feel the patient is stable for discharge at this time. I have discussed results, examination findings, the treatment plan with the patient and family present prior to discharge. Indications for emergent reevaluation, side effects of medication were also discussed. All questions were answered. Patient verbalizes understanding and agrees with plan of care. Departure Diagnosis: Primary Impression: Acute pain in female pelvis Condition: Good Patient Instructions: Pelvic Pain, Unknown Cause Referrals: SALES REPRESENTATIVE SUPERVISOR REFERRAL LIST Additional Instructions: Thank you for for coming to the [facility] for your care today. Please ask your nurse or provider if you have questions about your care today and do not leave until all your questions have been answered. Please use any medications given as directed and follow-up with your doctor (or the doctor you were referred to) in the next 2-3 days. If you do not have a primary care doctor you may follow up at the [facility] (listed below). You may also use motrin and tylenol as needed for fever and/or pain unless instructed otherwise by your provider or nurse. Indications for more urgent follow-up have been discussed, but you may return to the Emergency Department at ANY time for any worrisome or worsening symptoms. If you have abdominal pain, please know that no test or exam you received is perfect and you should follow up within 8 hours for continued pain. If you had any imaging studies today, such as an X-Ray or CT Scan, these studies will be reviewed later by a radiologist. You will be called if there are important findings that were not identified today, so make sure the contact information you provided at registration is correct. If you received any narcotic pain control medicine today, such as Vicodin, Morphine or Dilaudid, your coordination and judgment may be affected for a number of hours. Please do not drive or operate heavy machinery, and you may want someone to assist you at home. If you were given a prescription for narcotic medication, be aware that it is very addictive- use sparingly and only if necessary. MATT COHN Nov 29, 2016 16:02
[2016-11-29] MEDS ORDERED: KETOROLAC 15 MG INJ IM STA (16:05)
[2016-11-29] MEDS ORDERED: HYDROCODONE/APAP (5/325) TAB PO ONE (16:30)
[2016-11-29 16:44] LABS: URINE BLOOD (Dip) POC Negative (NEGATIVE)
--- NOTE | 2016-11-29 16:52 | RADRPT ---
PROCEDURE: US Pelvis. CLINICAL INDICATION: Pelvic pain. TECHNIQUE: The pelvis was evaluated with transabdominal sonography in the axial and sagittal plane s. COMPARISON: No prior study is available for comparison. FINDINGS: The uterus measures 7.7 x 2.9 x 4.7 cm. There is no uterine enlargement or mass. Endometrial thickne ss is 8 mm. Small benign Nabothian cysts are present in the cervix. The ovaries are not visualized. There is no other pelvic mass or free fluid. IMPRESSION: 1. Limited study as transvaginal sonography was not performed. 2. Normal uterus and ovaries. 3. Small benign Nabothian cysts in the cervix. RPTAT: QQ .Sudheer Sales MD, MD Date Time Electronically viewed and signed by .Sudheer Sales MD, on 11/29/2016 16:52 .R/
[2016-11-29 17:42] LABS: ADD UMIC NO; UR ASCORBIC ACID 20 mg/dL (NEGATIVE); UR BACTERIA FEW /HPF (NONE SEEN); UR BILIRUBIN (Dip) NEGATIVE (NEGATIVE); UR BLOOD (Dip) NEGATIVE (NEGATIVE); UR CLARITY SLIGHTLY CLOUDY (CLEAR); UR COLOR YELLOW (YELLOW); UR GLUCOSE (Dip) NEGATIVE (NEGATIVE); UR KETONES (Dip) NEGATIVE (NEGATIVE); UR LEUKOCYTE ESTERASE (Dip) NEGATIVE Leu/ul (NEGATIVE); UR NITRITE (Dip) NEGATIVE (NEGATIVE); UR RBC 0 /HPF (0-5); UR SPECIFIC GRAVITY (Dip) 1.011 (1.003-1.030); UR TOTAL PROTEIN (Dip) NEGATIVE (NEGATIVE); UR UROBILINOGEN (Dip) NEGATIVE (NEGATIVE)
[2016-11-29] MEDS ORDERED: HYDR-906 PO (18:01)
[2016-11-29] MEDS ORDERED: NAPR-260 PO (18:01)
== END 2016-11-29 18:39 | disposition home or self-care (01) ==
LOC: FTE 13:54
DX: R10.2 Pelvic and perineal pain (principal)
CPT/HCPCS: 76830; 76856; 81001; 96372; J1885; Z7502; Z7610; 81003

== ENCOUNTER 2016-12-03 11:57 | Emergency (ER) | payer OTHER ==
[~2016-12-03] VITALS: Wt 68.0 kg
[~2016-12-03 11:57] MED LIST changes: +NAPR-260 PO
[2016-12-03] MEDS ORDERED: KETOROLAC 60 MG INJ IM STA (12:19)
[2016-12-03 12:51] LABS: ADD UMIC NO; UR ASCORBIC ACID NEGATIVE (NEGATIVE); UR BILIRUBIN (Dip) NEGATIVE (NEGATIVE); UR BLOOD (Dip) NEGATIVE (NEGATIVE); UR CLARITY CLEAR (CLEAR); UR COLOR COLORLESS (YELLOW); UR GLUCOSE (Dip) NEGATIVE (NEGATIVE); UR KETONES (Dip) NEGATIVE (NEGATIVE); UR LEUKOCYTE ESTERASE (Dip) NEGATIVE Leu/ul (NEGATIVE); UR NITRITE (Dip) NEGATIVE (NEGATIVE); UR SPECIFIC GRAVITY (Dip) 1.001 (1.003-1.030); UR TOTAL PROTEIN (Dip) NEGATIVE (NEGATIVE); UR UROBILINOGEN (Dip) NEGATIVE (NEGATIVE)
[2016-12-03] MEDS ORDERED: PHEN-538 PO (12:55)
[2016-12-03] MEDS ORDERED: HYDR-906 PO (12:55)
--- NOTE | 2016-12-03 12:58 | ERD ---
ER Documentation Chief Complaint Date/Time DATE: 12/03/16 TIME: 12:56 Chief Complaint PELVIC PAIN X 1 YEAR HPI This patient is a 31-year-old female who has chronic pelvic pain and states she is currently waiting to see a specialist for surgery. She is complaining of pain and states she pain medication to help her with the pain. She states last time she came she got Toradol which helped taken ibuprofen and [place] with help. She denies any dysuria hematuria or frequency. No nausea or vomiting. No fever. ROS All systems reviewed and are negative except as per history of present illness. Medications Home Meds Active Scripts Hydrocodone/Acetaminophen ([place] 5-325 Tablet) 1 Each Tablet, 1 EACH PO Q6, #15 TAB Prov:JESSICA HAMMOND PA-C 12/03/16 Phenazopyridine Hcl* (Pyridium*) 200 Mg Tab, 200 MG PO TID Y for URINARY PAIN, # 6 TAB Prov:JESSICA HAMMOND PA-C 12/03/16 Hydrocodone/Acetaminophen ([place] 5-325 Tablet) 1 Each Tablet, 1 TAB PO Q6H Y for PAIN, #7 TAB Prov:LALIT,MATT 11/29/16 Naproxen* (Naprosyn*) 500 Mg Tablet, 500 MG PO BID Y for PAIN AND/OR INFLAMMATION, #20 TAB Prov:LALIT,MATT 11/29/16 Ibuprofen* (Motrin*) 600 Mg Tab, 600 MG PO Q6, #30 TAB Prov:MANUEL CARBALLO PA-C 11/21/16 Hydrocodone/Acetaminophen ([place] 5-325 Tablet) 1 Each Tablet, 1 TAB PO Q6H Y for PAIN, #5 TAB Prov:MANUEL CARBALLO PA-C 11/21/16 Tamsulosin Hcl* (Flomax*) 0.4 Mg Cap.er.24h, 0.4 MG PO QPM, #30 CAP Prov:SENDY GRIFFIN NP 10/19/16 Hydrocodone/Acetaminophen ([place] 5-325 Tablet) 1 Each Tablet, 1 TAB PO Q6H Y for SEVERE PAIN LEVEL 7-10, #20 TAB Prov:SENDY GRIFFIN NP 10/19/16 Ibuprofen* (Motrin*) 600 Mg Tab, 600 MG PO Q6H Y for PAIN AND OR ELEVATED TEMP, #30 TAB Prov:SENDY GRIFFIN NP 10/19/16 Phenazopyridine Hcl* (Pyridium*) 200 Mg Tab, 200 MG PO TID Y for URINARY PAIN, # 6 TAB Prov:SENDY GRIFFIN NP 10/19/16 Ciprofloxacin Hcl* (Ciprofloxacin Hcl*) 500 Mg Tablet, 500 MG PO BID for 10 Days , TAB Prov:SENDY GRIFFIN NP 10/19/16 Hydrocodone/Acetaminophen ([place] 10-325 Tablet) 1 Each Tablet, 1 TAB PO Q6H Y for PAIN, #7 TAB Prov:PERCY COHN MD 09/09/16 Ondansetron (Ondansetron Odt) 4 Mg Tab.rapdis, 4 MG PO Q6H Y for NAUSEA AND/OR VOMITING, #10 TAB Prov:PERCY COHN MD 09/09/16 Phenazopyridine Hcl* (Pyridium*) 200 Mg Tab, 200 MG PO TID Y for URINARY PAIN, # 6 TAB Prov:PERCY COHN MD 09/09/16 Ibuprofen* (Motrin*) 600 Mg Tab, 600 MG PO Q8, #30 TAB Prov:PERCY COHN MD 09/09/16 Allergies Allergies: Coded Allergies: erythromycin base (Verified Allergy, Intermediate, Rash, 09/09/16) sulfamethoxazole (Verified Allergy, Intermediate, Rash, 09/09/16) trimethoprim (Verified Allergy, Intermediate, Rash, 09/09/16) PMhx/Soc History of Surgery: No Anesthesia Reaction: No Hx Neurological Disorder: No Hx Respiratory Disorders: No Hx Cardiac Disorders: No Hx Psychiatric Problems: No Hx Miscellaneous Medical Probl: No Hx Alcohol Use: No Hx Substance Use: No Hx Tobacco Use: No FmHx Family History: No diabetes Physical Exam Vitals Vital Signs Date Time Temp Pulse Resp B/P Pulse Ox O2 Delivery O2 Flow Rate FiO2 12/03/16 12:00 98.3 101 18 107/66 99 Physical Exam INITIAL VITAL SIGNS: Reviewed by me GENERAL: Awake, alert and oriented x 4, well appearing, nontoxic, speaking in full sentences. No acute distress RESPIRATORY: Clear to auscultation bilaterally. Symmetric chest wall rise. No wheezing or rales. No accessory muscle use. CV: Regular rate and rhythm. No murmurs, rubs, or gallops. ABDOMEN: Soft, non-distended. Nontender. Negative [place]. Negative McBurneys point tenderness. No CVA tenderness bilaterally. No guarding. No rebound. : Deffered. Results 24 hrs Laboratory Tests Test 12/03/16 12:30 Urine Color COLORLESS Urine Clarity CLEAR Urine pH 8.0 Urine Specific [place] 1.001 Urine Ketones NEGATIVEmg/dL Urine Nitrite NEGATIVEmg/dL Urine Bilirubin NEGATIVEmg/dL Urine Urobilinogen NEGATIVEmg/dL Urine Leukocyte Esterase NEGATIVELeu/ul Urine Hemoglobin NEGATIVEmg/dL Urine Glucose NEGATIVEmg/dL Urine Total Protein NEGATIVEmg/dl Current Medications Medications (Trade) Dose Ordered Sig/Yohan Route PRN Reason Start Time Stop Time Status Last Admin Dose Admin Ketorolac Tromethamine (Toradol) 60 mg ONCE STAT IM 12/03/16 12:19 12/03/16 12:20 DC 12/03/16 12:36 Procedures/MDM Patient has pelvic pain. This is chronic as she is awaiting surgery. She is afebrile well-appearing. Her GI examination is benign. Urine is negative for or infection. Review of online cures database did not show any suspicious activity. She is given Toradol here and discharged with ibuprofen, Pyridium, and [place]. Patient counseled regarding my diagnostic impression and care plan. Prior to discharge all questions answered. Pt agrees with treatment plan and understands strict return precautions. Pt is instructed to follow up with primary care provider within 24-48 hours. Precautionary instructions provided including instructions to return to the ER if not improving or for any worsening or changing symptoms or concerns. Departure Diagnosis: Primary Impression: Pelvic pain Condition: Stable Patient Instructions: Pelvic Pain, Unknown Cause Additional Instructions: Call your primary care doctor TOMORROW for an appointment during the next 1-2 days.See the doctor sooner or return here if your condition worsens before your appointment time. JESSICA HAMMOND PA-C Dec 03, 2016 12:58
== END 2016-12-03 13:03 | disposition home or self-care (01) ==
LOC: FTE 11:57
DX: R10.2 Pelvic and perineal pain (principal)
CPT/HCPCS: 81003; 96372; J1885; Z7502

== ENCOUNTER 2016-12-10 11:02 | Emergency (ER) | payer OTHER ==
[~2016-12-10] VITALS: Ht 157.5 cm; Wt 69.0 kg
[2016-12-10 11:05] VITALS: Ht 157.5 cm; Wt 69.0 kg
[2016-12-10 13:43] LABS: URINE BLOOD (Dip) POC Negative (NEGATIVE)
[2016-12-10] MEDS ORDERED: LIDOCAINE 1% (MDV) 20 ML INJ SC ONE (14:00)
[2016-12-10] MEDS ORDERED: CEFTRIAXONE 1 GM INJ IM ONE (14:00)
[2016-12-10] MEDS ORDERED: MICO100S4 VG (14:07)
[2016-12-10] MEDS ORDERED: FLUC150T17 PO (14:07)
[2016-12-10] MEDS ORDERED: CEPH-443 PO (14:07)
[2016-12-10] MEDS ORDERED: NAPR-260 PO (14:45)
[2016-12-10] MEDS ORDERED: TRAM50TA2 PO (14:45)
--- NOTE | 2016-12-10 14:50 | ERD ---
ER Documentation Chief Complaint Date/Time DATE: 12/10/16 TIME: 14:46 Chief Complaint Complains of pelvic pain HPI 31-year-old female complaining of pelvic pain. Patient has been seen multiple times and told that she has phleboliths. Patient states that she is having dysuria. Patient is taking Toradol and naproxen. Denies any vaginal discharge and is not sexually active. Last normal period was December 11. She had a UTI and is unsure if her infection is cured. ROS All systems reviewed and are negative except as per history of present illness. Medications Home Meds Active Scripts Naproxen* (Naprosyn*) 500 Mg Tablet, 500 MG PO BID Y for PAIN AND/OR INFLAMMATION, #30 TAB Prov:VERONICA LAMBERT PA-C 12/10/16 Tramadol HCl (Tramadol HCl) 50 Mg Tablet, 50 MG PO Q4 Y for PAIN, #10 TAB Prov:VERONICA LAMBERT PA-C 12/10/16 Fluconazole* (Diflucan*) 150 Mg Tablet, 150 MG PO ONCE, #1 TAB Prov:VERONICA LAMBERT PA-C 12/10/16 Miconazole Nitrate (Miconazole 7) 100 Mg Supp.vag, 100 MG VG QHS, #7 SUPP.VAG Prov:VERONICA LAMBERT PA-C 12/10/16 Cephalexin* (Keflex*) 500 Mg Capsule, 500 MG PO QID for 7 Days, CAP Prov:VERONICA LAMBERT PA-C 12/10/16 Hydrocodone/Acetaminophen ([place] 5-325 Tablet) 1 Each Tablet, 1 EACH PO Q6, #15 TAB Prov:JESSICA HAMMOND PA-C 12/03/16 Phenazopyridine Hcl* (Pyridium*) 200 Mg Tab, 200 MG PO TID Y for URINARY PAIN, # 6 TAB Prov:JESSICA HAMMOND PA-C 12/03/16 Hydrocodone/Acetaminophen ([place] 5-325 Tablet) 1 Each Tablet, 1 TAB PO Q6H Y for PAIN, #7 TAB Prov:LALIT,MATT 11/29/16 Naproxen* (Naprosyn*) 500 Mg Tablet, 500 MG PO BID Y for PAIN AND/OR INFLAMMATION, #20 TAB Prov:LALIT,MATT 11/29/16 Ibuprofen* (Motrin*) 600 Mg Tab, 600 MG PO Q6, #30 TAB Prov:MANUEL CARBALLO PA-C 11/21/16 Hydrocodone/Acetaminophen ([place] 5-325 Tablet) 1 Each Tablet, 1 TAB PO Q6H Y for PAIN, #5 TAB Prov:MANUEL CARBALLO PA-C 11/21/16 Tamsulosin Hcl* (Flomax*) 0.4 Mg Cap.er.24h, 0.4 MG PO QPM, #30 CAP Prov:SENDY GRIFFIN NP 10/19/16 Hydrocodone/Acetaminophen ([place] 5-325 Tablet) 1 Each Tablet, 1 TAB PO Q6H Y for SEVERE PAIN LEVEL 7-10, #20 TAB Prov:SENDY GRIFFIN NP 10/19/16 Ibuprofen* (Motrin*) 600 Mg Tab, 600 MG PO Q6H Y for PAIN AND OR ELEVATED TEMP, #30 TAB Prov:SENDY GRIFFIN NP 10/19/16 Phenazopyridine Hcl* (Pyridium*) 200 Mg Tab, 200 MG PO TID Y for URINARY PAIN, # 6 TAB Prov:SENDY GRIFFIN NP 10/19/16 Ciprofloxacin Hcl* (Ciprofloxacin Hcl*) 500 Mg Tablet, 500 MG PO BID for 10 Days , TAB Prov:SENDY GRIFFIN NP 10/19/16 Hydrocodone/Acetaminophen ([place] 10-325 Tablet) 1 Each Tablet, 1 TAB PO Q6H Y for PAIN, #7 TAB Prov:PERCY COHN MD 09/09/16 Ondansetron (Ondansetron Odt) 4 Mg Tab.rapdis, 4 MG PO Q6H Y for NAUSEA AND/OR VOMITING, #10 TAB Prov:PERCY COHN MD 09/09/16 Phenazopyridine Hcl* (Pyridium*) 200 Mg Tab, 200 MG PO TID Y for URINARY PAIN, # 6 TAB Prov:PERCY CONH MD 09/09/16 Ibuprofen* (Motrin*) 600 Mg Tab, 600 MG PO Q8, #30 TAB Prov:PERCY COHN MD 09/09/16 Allergies Allergies: Coded Allergies: erythromycin base (Verified Allergy, Intermediate, Rash, 09/09/16) sulfamethoxazole (Verified Allergy, Intermediate, Rash, 09/09/16) trimethoprim (Verified Allergy, Intermediate, Rash, 09/09/16) PMhx/Soc History of Surgery: No Anesthesia Reaction: No Hx Neurological Disorder: No Hx Respiratory Disorders: No Hx Cardiac Disorders: No Hx Psychiatric Problems: No Hx Miscellaneous Medical Probl: No Hx Alcohol Use: No Hx Substance Use: No Hx Tobacco Use: No Physical Exam Vitals Vital Signs Date Time Temp Pulse Resp B/P Pulse Ox O2 Delivery O2 Flow Rate FiO2 12/10/16 11:05 100.0 103 20 121/62 96 Physical Exam GENERAL: The patient is well-appearing, well-nourished, in no acute distress CHEST: Clear to auscultation bilaterally. There are no rales, wheezes or rhonchi. HEART: Regular rate and rhythm. No murmurs, clicks, rubs or gallops. No S3 or S4. ABDOMEN:Soft, nontender and nondistended. Good bowel sounds. No rebound or guarding. No gross peritonitis. No gross organomegaly or masses. No Stone sign or McBurney point tenderness. : Os closed. Discharge noted within the vaginal vault. No CMT. No adnexal masses or tenderness. Results 24 hrs Laboratory Tests Test 12/10/16 13:50 Bedside Urine pH (LAB) 7.0 Bedside Urine Protein (LAB) Negative Bedside Urine Glucose (UA) Negative Bedside Urine Ketones (LAB) Negative Bedside Urine Blood Negative Bedside Urine Nitrite (LAB) Positive Bedside Urine Leukocyte Esterase (L Negative Current Medications Medications (Trade) Dose Ordered Sig/Yohan Route PRN Reason Start Time Stop Time Status Last Admin Dose Admin Ceftriaxone Sodium (Rocephin) 1 gm ONCE ONCE IM 12/10/16 14:00 12/10/16 14:01 DC 12/10/16 14:05 Lidocaine (Xylocaine 1% (Mdv) 20 ml) 20 ml ONCE ONCE SC 12/10/16 14:00 12/10/16 14:01 DC 12/10/16 14:05 Procedures/MDM ER Course: Patient's urine shows signs of infection. MDM: I have low suspicion for pyelonephritis. Patient's exam is non- concerning. I have low suspicion for PID. She does have signs of candidiasis on exam and I will treat for yeast and UTI. I have low suspicion for emergent abdominal etiology. Low suspicion for ectopic . Patient will be discharged with pain medication and antibiotics and anti-yeast medication. Patient is told symptoms change or worsen to return the ER. All other questions answered discharge. Patient is recommended follow-up with primary care within 1-2 days for close evaluation. Departure Diagnosis: Primary Impression: UTI (urinary tract infection) Condition: Stable Patient Instructions: Understanding Urinary Tract Infections (UTIs), Vaginal Infection: Yeast (Candidiasis) Referrals: [facility] YOU HAVE RECEIVED A MEDICAL SCREENING EXAM AND THE RESULTS INDICATE THAT YOU DO NOT HAVE A CONDITION THAT REQUIRES URGENT TREATMENT IN THE EMERGENCY DEPARTMENT. FURTHER EVALUATION AND TREATMENT OF YOUR CONDITION CAN WAIT UNTIL YOU ARE SEEN IN YOUR DOCTORS OFFICE WITHIN THE NEXT 1-2 DAYS. IT IS YOUR RESPONSIBILITY TO MAKE AN APPOINTMENT FOR FOLOW-UP CARE. IF YOU HAVE A PRIMARY DOCTOR --you should call your primary doctor and schedule an appointment IF YOU DO NOT HAVE A PRIMARY DOCTOR YOU CAN CALL OUR PHYSICIAN REFERRAL HOTLINE AT IF YOU CAN NOT AFFORD TO SEE A PHYSICIAN YOU CAN CHOSE FROM THE FOLLOWING [facility] [id number] [facility] [address] [facility] [facility] [address] [facility] [address] [facility] [address] [facility] [facility]. [address] Additional Instructions: FOLLOW UP WITH YOUR PRIMARY CARE PHYSICIAN TOMORROW.Return to this facility if you are not improving as expected. VERONICA LAMBERT PA-C Dec 10, 2016 14:50
== END 2016-12-10 14:54 | disposition home or self-care (01) ==
LOC: FTE 11:02
DX: N39.0 Urinary tract infection, site not specified (principal)
CPT/HCPCS: 81003; 87086; 87591; 96372; J0696; Z7502; Z7610

== ENCOUNTER 2016-12-16 00:54 | Emergency (ER) | payer OTHER ==
[~2016-12-16] VITALS: Ht 157.5 cm; Wt 68.5 kg
[~2016-12-16 00:54] MED LIST changes: +CEPH-443 PO; +FLUC150T17 PO; +MICO100S4 VG; +TRAM50TA2 PO
[2016-12-16 01:11] VITALS: Ht 157.5 cm; Wt 68.5 kg
[2016-12-16 01:51] LABS: URINE BLOOD (Dip) POC Negative (NEGATIVE)
[2016-12-16] MEDS ORDERED: KETOROLAC 30 MG INJ IV STA (02:26)
--- NOTE | 2016-12-16 02:32 | ERD ---
ER Documentation Chief Complaint Date/Time DATE: 12/16/16 TIME: 02:30 Chief Complaint Abd. pain radiating to buttocks/ rectal area x 1 yr. HPI 31-year-old female with history of pelvic congestion comes in with complaints of pelvic pain. This is similar to previous episodes in the past. No change in previous episodes. No nausea no vomiting no chills. No other current complaints. Pain is mild to moderate intensity with no exacerbating or remitting factors. No nausea no vomiting no fevers no chills ROS All systems reviewed and are negative except as per history of present illness. Medications Home Meds Active Scripts Naproxen* (Naprosyn*) 500 Mg Tablet, 500 MG PO BID Y for PAIN AND/OR INFLAMMATION, #30 TAB Prov:VERONICA LAMBERT PA-C 12/10/16 Tramadol HCl (Tramadol HCl) 50 Mg Tablet, 50 MG PO Q4 Y for PAIN, #10 TAB Prov:VERONICA LAMBERT PA-C 12/10/16 Fluconazole* (Diflucan*) 150 Mg Tablet, 150 MG PO ONCE, #1 TAB Prov:VERONICA LAMBERT PA-C 12/10/16 Miconazole Nitrate (Miconazole 7) 100 Mg Supp.vag, 100 MG VG QHS, #7 SUPP.VAG Prov:VERONICA LAMBERT PA-C 12/10/16 Cephalexin* (Keflex*) 500 Mg Capsule, 500 MG PO QID for 7 Days, CAP Prov:VERONICA LAMBERT PA-C 12/10/16 Hydrocodone/Acetaminophen ([place] 5-325 Tablet) 1 Each Tablet, 1 EACH PO Q6, #15 TAB Prov:JESSICA HAMMOND PA-C 12/03/16 Phenazopyridine Hcl* (Pyridium*) 200 Mg Tab, 200 MG PO TID Y for URINARY PAIN, # 6 TAB Prov:JESSICA HAMMOND PA-C 12/03/16 Hydrocodone/Acetaminophen ([place] 5-325 Tablet) 1 Each Tablet, 1 TAB PO Q6H Y for PAIN, #7 TAB Prov:LALIT,MATT 11/29/16 Naproxen* (Naprosyn*) 500 Mg Tablet, 500 MG PO BID Y for PAIN AND/OR INFLAMMATION, #20 TAB Prov:LALIT,MATT 11/29/16 Ibuprofen* (Motrin*) 600 Mg Tab, 600 MG PO Q6, #30 TAB Prov:MANUEL CARBALLO PA-C 11/21/16 Hydrocodone/Acetaminophen ([place] 5-325 Tablet) 1 Each Tablet, 1 TAB PO Q6H Y for PAIN, #5 TAB Prov:MANUEL CARBALLO PA-C 11/21/16 Tamsulosin Hcl* (Flomax*) 0.4 Mg Cap.er.24h, 0.4 MG PO QPM, #30 CAP Prov:SENDY GRIFFIN NP 10/19/16 Hydrocodone/Acetaminophen ([place] 5-325 Tablet) 1 Each Tablet, 1 TAB PO Q6H Y for SEVERE PAIN LEVEL 7-10, #20 TAB Prov:SENDY GRIFFIN NP 10/19/16 Ibuprofen* (Motrin*) 600 Mg Tab, 600 MG PO Q6H Y for PAIN AND OR ELEVATED TEMP, #30 TAB Prov:SENDY GRIFFIN NP 10/19/16 Phenazopyridine Hcl* (Pyridium*) 200 Mg Tab, 200 MG PO TID Y for URINARY PAIN, # 6 TAB Prov:SENDY GRIFFIN NP 10/19/16 Ciprofloxacin Hcl* (Ciprofloxacin Hcl*) 500 Mg Tablet, 500 MG PO BID for 10 Days , TAB Prov:SENDY GRIFFIN NP 10/19/16 Hydrocodone/Acetaminophen ([place] 10-325 Tablet) 1 Each Tablet, 1 TAB PO Q6H Y for PAIN, #7 TAB Prov:PERCY COHN MD 09/09/16 Ondansetron (Ondansetron Odt) 4 Mg Tab.rapdis, 4 MG PO Q6H Y for NAUSEA AND/OR VOMITING, #10 TAB Prov:PERCY COHN MD 09/09/16 Phenazopyridine Hcl* (Pyridium*) 200 Mg Tab, 200 MG PO TID Y for URINARY PAIN, # 6 TAB Prov:PERCY COHN MD 09/09/16 Ibuprofen* (Motrin*) 600 Mg Tab, 600 MG PO Q8, #30 TAB Prov:PERCY COHN MD 09/09/16 Allergies Allergies: Coded Allergies: erythromycin base (Verified Allergy, Intermediate, Rash, 09/09/16) sulfamethoxazole (Verified Allergy, Intermediate, Rash, 09/09/16) trimethoprim (Verified Allergy, Intermediate, Rash, 09/09/16) PMhx/Soc Anesthesia Reaction: No Hx Neurological Disorder: No Hx Respiratory Disorders: No Hx Cardiac Disorders: No Hx Psychiatric Problems: No Hx Miscellaneous Medical Probl: Yes (Pelvic Phleboliths) Hx Alcohol Use: No Hx Substance Use: No Hx Tobacco Use: Yes Smoking Status: Current every day smoker Physical Exam Vitals Vital Signs Date Time Temp Pulse Resp B/P Pulse Ox O2 Delivery O2 Flow Rate FiO2 12/16/16 01:11 97.9 93 17 122/76 98 Physical Exam Const: [] Head: Atraumatic Eyes: Normal Conjunctiva ENT: Normal External Ears, Nose and Mouth. Neck: Full range of motion..~ No meningismus. Resp: Clear to auscultation bilaterally Cardio: Regular rate and rhythm, no murmurs Abd: Soft, non tender, non distended. Normal bowel sounds Skin: No petechiae or rashes Back: No midline or flank tenderness Ext: No cyanosis, or edema Neur: Awake and alert Psych: Normal Mood and Affect Results 24 hrs Laboratory Tests Test 12/16/16 01:59 Bedside Urine pH (LAB) 7.0 Bedside Urine Protein (LAB) Negative Bedside Urine Glucose (UA) Negative Bedside Urine Ketones (LAB) Negative Bedside Urine Blood Negative Bedside Urine Nitrite (LAB) Negative Bedside Urine Leukocyte Esterase (L Negative Current Medications Medications (Trade) Dose Ordered Sig/Yohan Route PRN Reason Start Time Stop Time Status Last Admin Dose Admin Ketorolac Tromethamine (Toradol) 30 mg ONCE STAT IV 12/16/16 02:26 12/16/16 02:27 DC Procedures/MDM 31-year-old female who comes in with complaints of chronic abdominal pain. At this point pain is been treated with Toradol she feels better. Patient will be discharged home. Departure Diagnosis: Primary Impression: Abdominal pain Abdominal location: generalized Qualified Code: R10.84 - Generalized abdominal pain Condition: Stable Patient Instructions: Abdominal Pain MADISON CAMILO Dec 16, 2016 02:32
[2016-12-16] MEDS ORDERED: HYDR-902 PO (02:34)
[2016-12-16 02:56] VITALS: BP 121/68; PULSE 70; RESP 20
[2016-12-16] MEDS ORDERED: IBUP-1542 PO (02:56)
[2016-12-16] MEDS ORDERED: CEPH500C PO (02:56)
== END 2016-12-16 02:58 | disposition home or self-care (01) ==
LOC: E/R 00:54
DX: R10.84 Generalized abdominal pain (principal); F17.210 Nicotine dependence, cigarettes, uncomplicated
CPT/HCPCS: 81003; 96374; J1885; Z7502